=== PATIENT | female | born 1980 | race African-American/Black ===

== ENCOUNTER 2017-05-29 23:03 | Emergency (ER) | payer BC, OTHER ==
[~2017-05-29] VITALS: Ht 165.1 cm; Wt 117.9 kg
--- NOTE | ~2017-05-29 | EKG ---
PATIENT: LINWOOD ADAIR UNIT #: [id number] Ventricular Rate: 98 BPM Atrial Rate: 98 BPM P-R Interval: 156 ms QRS Duration: 78 ms Q-T Interval: 332 ms QTC Calculation(Bezet): 423 ms P [place]: 58 degrees Calculated R [place]: 14 degrees Calculated T [place]: 6 degrees Diagnosis Line: Normal sinus rhythm Diagnosis Line: Possible Left atrial enlargement Diagnosis Line: Left ventricular hypertrophy Diagnosis Line: Abnormal ECG Diagnosis Line: When compared with ECG of 14-SEP-2015 21:36, Diagnosis Line: No significant change was found Diagnosis Line: Confirmed by UMER COX MD ([id number]) on Diagnosis Line: 06/05/2017 9:59:16 PM INTERPRETING MD: KARLY
[~2017-05-29 23:03] MED LIST: AMOXICILLIN500 M1 PO; CETIRIZINE HCL10 MG PO; CLEOCIN HCL300 M1 PO; EXCEDRIN MIGRAI1 TA2 PO; EYE DROPS; FIORICET 50-321 EACH PO; FIORICET1 TAB PO; NEURONTIN PO; NO MEDICATIONS; TYLENOL #3 PO; VOLTAREN75 MG PO
[2017-05-29] MEDS ORDERED: FLEXERIL10 MG PO (23:25)
[2017-05-29] MEDS ORDERED: CARBAMAZEPINE100 M2 (23:25)
[2017-05-29] MEDS ORDERED: LAMOTRIGINE ER100 MG PO (23:25)
[2017-05-29] MEDS ORDERED: ZANAFLEX4 M1 PO (23:25)
[2017-05-29] MEDS ORDERED: ARTHRITIS PAIN650 M2 PO (23:26)
[2017-05-29] MEDS ORDERED: NAPROXEN SODIU500 M1 (23:26)
[2017-05-29 23:55] LABS: BASOPHIL# 0.1 X10e3 (0-0.3); BASOPHIL% 0.7 % (0-2.5); EOSINOPHIL# 0.1 X10e3 (0-0.7); EOSINOPHIL% 0.8 % (0.0-7.0); HEMATOCRIT 38.6 % (35.0-45.0); HEMOGLOBIN 12.8 gm/dL (12.0-16.0); LYMPHOCYTE# 3.4 X10e3 (1.0-3.5); LYMPHOCYTE% 34.8 % (17.0-45.0); MEAN CELL VOLUME 87.7 FL (83-96); MEAN CORPUSCULAR HGB CONC 33.1 g/dL (30-36); MEAN PLATELET VOLUME 7.5 FL (6.5-11.5); MONOCYTE# 0.8 X10e3 (0-1.0); MONOCYTE% 8.4 % (3.0-12.0); NEUTROPHIL# 5.4 X10e3 (1.5-7.1); NEUTROPHIL% 55.3 % (40-75); PLATELET COUNT 314 X10e3 (140-420); RED CELL DISTRIBUTION WIDTH 14.9 % (11.0-15.5); WHITE BLOOD COUNT 9.9 X10e3 (4.0-10.5)
[2017-05-29 23:56] LABS: DIFF IND NO
[2017-05-30 00:11] LABS: ACETAMINOPHEN 12 ug/mL; ALBUMIN SERUM 4.1 g/dL (3.5-5.0); ALKALINE PHOSPHATASE 66 U/L (32-92); ALT (SGPT) 14 U/L (10-40); AST (SGOT) 15 U/L (10-42); BILIRUBIN,TOTAL 0.3 mg/dL (0.2-2.0); BLOOD UREA NITROGEN 13 mg/dL (9-23); BUN/CREATININE RATIO 14.44; CALCIUM SERUM 9.2 mg/dL (8.4-10.2); CARBON DIOXIDE 25 mmol/L (22-31); CHLORIDE 105 mmol/L (100-111); CREATININE SERUM 0.9 mg/dL (0.6-1.4); GLOM FILT RATE Estimated 93.4 mL/min (>60); GLUCOSE FASTING 121 mg/dL (70-110); POTASSIUM 3.6 mmol/L (3.5-5.1); PROTEIN TOTAL SERUM 7.8 g/dL (6.0-8.3); SALICYLATE <4.0 mg/dL; SODIUM 138 mmol/L (135-145)
[2017-05-30 00:14] LABS: BILIRUBIN, DIRECT <0.1 mg/dL (0.0-0.2); BILIRUBIN,INDIRECT 0.2 mg/dL (0.0-0.9)
[2017-05-30 00:17] LABS: POC - CKMB <1.0 ng/mL (0.0-7.9); POC - TROPONIN <0.05 ng/mL (<=0.05)
[2017-05-30 00:23] LABS: URINE SOURCE CLEAN CATCH
[2017-05-30 00:26] LABS: MICRO INDICATED? NO; URINE APPEARANCE CLEAR; URINE BILIRUBIN NEG (NEG); URINE BLOOD NEG (NEG); URINE COLOR YELLOW; URINE GLUCOSE NEG (NORM); URINE KETONE TRACE (NEG); URINE LEUKOCYTE ESTERASE NEG (NEG); URINE NITRATE NEG (NEG); URINE PH 6.5 (5-8); URINE PROTEIN NEG (NEG); URINE UROBILINOGEN 0.2 MG/DL (NORM)
== END 2017-05-30 01:10 | disposition left against medical advice (07) ==
LOC: SED 23:03
PROVIDERS: Emergency Medicine
DX: R51 Headache (principal); R11.2 Nausea with vomiting, unspecified; R07.9 Chest pain, unspecified; Z90.710 Acquired absence of both cervix and uterus; Z79.899 Other long term (current) drug therapy
CPT/HCPCS: 36415; 80048; 80076; 81003; 82553; 84484; 84703; 85025; 93005; 96361; 96374; 96375; 99284; G0480; J0780; J1200; J2405